=== PATIENT | male | born 1965 | race Caucasian/White ===

== ENCOUNTER 2022-04-30 17:07 | Emergency (ER) | payer OTHER, SELFPAY ==
[2022-04-30 17:21] VITALS: BP 167/85; PULSE 80; RESP 20; TEMP 36.7; O2SAT 99
--- NOTE | 2022-04-30 17:56 | ED.URI ---
HPI - URI/Sore Throat General Chief Complaint: Upper Respiratory Infection Stated Complaint: COVID + Time Seen by Provider: 04/30/22 17:40 Source: patient, RN notes reviewed and old records reviewed Mode of arrival: ambulatory Limitations: no limitations History of Present Illness HPI Narrative: 56-year-old male who presents to express care with complaints of testing positive for COVID this morning. He reports that he is retired but [place] [employer] [place] and was told he needed to come to urgent care to be evaluated. He reports that he just returned from [place] this weekend he had been to see son who is also in . He reports joaquin on Friday he developed sore throat, fever, fatigue, headache and loss of appetite. He has had COVID vaccinations and also flu shot but states has not been recently wearing mask on airplane.. He states that he has been taking Motrin for his his symptoms. MD elicited complaint: fever, sore throat and other (headache, nausea and loss of appetite) Pain scale (0-10): 2 Treatments prior to arrival: ibuprofen Related Data Home Medications Medication Instructions Recorded Confirmed aspirin 81 mg chewable tablet 81 mg PO DAILY 04/26/21 04/30/22 cetirizine 10 mg capsule (Zyrtec) 10 mg PO DAILY 04/26/21 04/30/22 ferrous sulfate 325 mg (65 mg 325 mg PO DAILY 04/26/21 04/30/22 iron) tablet lorazepam 1 mg tablet (Ativan) 1 mg PO QHS 04/26/21 04/30/22 modafinil 200 mg tablet (Provigil) 200 mg PO QAM 04/26/21 04/30/22 nitroglycerin 0.4 mg sublingual 0.4 mg sublingual Q5M 04/26/21 04/30/22 tablet vilazodone 40 mg tablet (Viibryd) 40 mg PO DAILY 04/26/21 04/30/22 carvedilol 3.125 mg tablet 1 tablet DIRECTED 04/30/22 04/30/22 lamotrigine 200 mg tablet 200 tablet DAILY 04/30/22 04/30/22 losartan 25 mg tablet 12.5 tablet DAILY 04/30/22 04/30/22 Allergies Allergy/AdvReac Type Severity Reaction Status Date / Time sumatriptan Allergy Mild rash Verified 04/30/22 17:30 Review of Systems Review of Systems: CONSTITUTIONAL: Positive for fever, chills, or sweats. EYES: Denies visual changes, redness, or discharge. ENT: Denies rhinorrhea, congestion, positive for sore throat, no otalgia. CARDIOVASCULAR: Denies chest pain, palpitations, or edema. RESPIRATORY: Denies cough or dyspnea. GASTROINTESTINAL: Denies abdominal pain,some nausea, no vomiting, or diarrhea, loss of appetitie reported GENITOURINARY: Denies dysuria or hematuria. SKIN: Denies rash or itching. MUSCULOSKELETAL: Denies back pain, joint pain, some body aches NEUROLOGIC: Positive for headache,no numbness, or weakness. PSYCHIATRIC: Positive for anxiety or depression. [facility] Past Medical History Medical History (Updated 05/01/22 @ 11:21 by Isela Oropeza NP) Acute arthritis Anxiety Depression Hypertension Kidney stones Sleep apnea Surgical History Surgical History (Updated 05/01/22 @ 11:21 by Isela Oropeza NP) H/O elbow surgery left Family History Family History (Updated 08/12/17 @ 15:10 by DOCTOR UNKNOWN) Other Cerebrovascular accident Diabetes mellitus Family history of kidney disease Family history of malignant neoplasm Hypertension Social History Social History (Updated 04/30/22 @ 18:09 by Isela Oropeza NP) Smoking status: Never smoker Alcohol intake: never Substance use: never Living arrangements: with family Gender identity (if verbalized by the patient): Male Comments At time of signature, agree with nursing past medical, surgical, social and family history. There is no relevant family history pertinent to the presenting complaint Exam Narrative: GENERAL: Well-appearing, well-nourished, and in no acute distress. HEAD: Normocephalic, atraumatic. EYES: PERRLA and EOMI. ENT: Nares clear, no rhinorrhea or epistaxis. Mucous membranes moist.TM's normal with good light reflex, throat red with no lesions or exudates or tonsil swelling NECK: Supple.no lymphadenopath
== END 2022-04-30 18:21 | disposition home or self-care (01) ==
PROVIDERS: Emergency Provider Registered Nurse
DX: U07.1 COVID-19 (principal); J06.9 Acute upper respiratory infection, unspecified; I10 Essential (primary) hypertension; G47.30 Sleep apnea, unspecified; F41.9 Anxiety disorder, unspecified; F32.A Depression, unspecified; M19.90 Unspecified osteoarthritis, unspecified site
CPT/HCPCS: 99211; G0463